=== PATIENT | female | born 1990 | race African-American/Black ===

== ENCOUNTER 2018-03-16 10:05 | Observation (INO) | payer MEDICAID ==
[~2018-03-16 10:05] MED LIST: PREN-96 PO
== END 2018-03-16 11:40 | disposition home or self-care (01) | DRG 566 ==
LOC: LDRP 10:05
PROVIDERS: ADMIT Obstetrics & Gynecology; ATTEND Obstetrics & Gynecology
DX: O48.0 Post-term pregnancy (principal); Z3A.40 40 weeks gestation of pregnancy
CPT/HCPCS: 59025; 76818; 81002; G0378

== ENCOUNTER 2018-03-18 19:05 | Observation (INO) | payer MEDICAID | END 2018-03-18 20:28 | disposition home or self-care (01) | DRG 566 | LOC: LDRP 19:05 | PROVIDERS: ADMIT Obstetrics & Gynecology; ATTEND Obstetrics & Gynecology | DX: O48.0 Post-term pregnancy (principal); Z3A.40 40 weeks gestation of pregnancy | CPT/HCPCS: 59025; 76818; 81002; G0378 ==

== ENCOUNTER 2018-03-20 14:55 | Observation (INO) | payer MEDICAID | END 2018-03-20 17:30 | disposition home or self-care (01) | DRG 566 | LOC: LDRP 14:55 | PROVIDERS: ADMIT Specialist; ATTEND Specialist | DX: O48.0 Post-term pregnancy (principal); Z3A.40 40 weeks gestation of pregnancy | CPT/HCPCS: 59025; 76818; 81002; G0378 ==

== ENCOUNTER 2018-03-22 15:07 | Observation (INO) | payer MEDICAID ==
[~2018-03-22] VITALS: Ht 167.6 cm; Wt 119.7 kg
== END 2018-03-22 16:55 | disposition home or self-care (01) | DRG 566 ==
LOC: LDRP 15:07
PROVIDERS: ADMIT Obstetrics & Gynecology; ATTEND Obstetrics & Gynecology
DX: O48.0 Post-term pregnancy (principal); O62.9 Abnormality of forces of labor, unspecified; Z3A.40 40 weeks gestation of pregnancy
CPT/HCPCS: 59025; 76818; 81002; G0378

== ENCOUNTER 2018-03-24 22:15 | Observation (INO) | payer MEDICAID | END 2018-03-24 23:45 | disposition home or self-care (01) | DRG 566 | LOC: LDRP 22:15 | PROVIDERS: ADMIT Specialist; ATTEND Specialist | DX: O48.0 Post-term pregnancy (principal); O62.9 Abnormality of forces of labor, unspecified; Z3A.41 41 weeks gestation of pregnancy | CPT/HCPCS: 59025; 76818; 81002; G0378 ==

== ENCOUNTER → 2018-06-18 | Outpatient (CLI) | payer OTHER | END | disposition home or self-care (01) | LOC: LAB 14:11 | PROVIDERS: ATTEND Preventive Medicine Preventive Medicine/Occupational Environmental Medicine | DX: B19.10 Unspecified viral hepatitis B without hepatic coma (principal) | CPT/HCPCS: 36415; 86706; 86735; 86762; 86765; 86787 ==

== ENCOUNTER 2019-10-22 11:05 | Observation (INO) | payer MEDICAID, OTHER | END 2019-10-22 13:45 | disposition home or self-care (01) | DRG 566 | LOC: LDRP 11:05 | PROVIDERS: ADMIT Specialist; ATTEND Specialist | DX: O48.0 Post-term pregnancy (principal); Z3A.40 40 weeks gestation of pregnancy | CPT/HCPCS: 59025; 76818; 81002; G0378 ==

== ENCOUNTER 2019-10-24 19:06 | Observation (INO) | payer MEDICAID | END 2019-10-24 22:10 | disposition home or self-care (01) | DRG 566 | LOC: LDRP 19:06 | PROVIDERS: ADMIT Obstetrics & Gynecology; ATTEND Obstetrics & Gynecology | DX: O48.0 Post-term pregnancy (principal); Z3A.40 40 weeks gestation of pregnancy | CPT/HCPCS: 59025; 76818; 81002; G0378 ==

== ENCOUNTER 2019-10-26 11:35 | Observation (INO) | payer MEDICAID | END 2019-10-26 13:34 | disposition home or self-care (01) | DRG 566 | LOC: LDRP 11:35 | PROVIDERS: ADMIT Specialist; ATTEND Specialist | DX: O48.0 Post-term pregnancy (principal); Z3A.40 40 weeks gestation of pregnancy | CPT/HCPCS: 59025; 76818; 81002; G0378 ==

== ENCOUNTER 2019-10-28 16:00 | Observation (INO) | payer MEDICAID | END 2019-10-28 17:55 | disposition home or self-care (01) | DRG 566 | LOC: LDRP 16:00 | PROVIDERS: ADMIT Specialist; ATTEND Specialist | DX: O48.0 Post-term pregnancy (principal); Z3A.40 40 weeks gestation of pregnancy | CPT/HCPCS: 59025; 76818; 81002; G0378 ==

== ENCOUNTER 2019-10-30 09:08 | Inpatient (IN) | payer MEDICAID ==
[~2019-10-30] VITALS: Ht 167.6 cm; Wt 120.7 kg
[2019-10-30] MEDS ORDERED: PENICILLIN G POT 5MIL/D5 50ML 50 ML IV ONE (11:45)
[2019-10-30] MEDS: LACTATED RINGER'S 1,000 ML IV SCH ×2 (12:01→18:18)
[2019-10-30 12:31] LABS: Basophils # (auto) 0.1 10 ^3/uL (0-0.2); Basophils % (auto) 1.5 % (0.0-2.0); Eosinophils # (auto) 0 10 ^3/uL (0-0.8); Eosinophils % (auto) 0.5 % (0.0-7.0); Hematocrit 41.9 % (36.0-46.0); Hemoglobin 13.5 g/dL (12.2-16.2); Lymphocytes # (auto) 1.1 10 ^3/uL (0.4-5.4); Lymphocytes % (auto) 14.6 % (10.0-50.0); Mean Corpuscular Hemoglobin 29.3 pg (28.0-32.0); Mean Corpuscular Hgb Conc. 32.3 g/dL (32.0-36.0); Mean Corpuscular Volume 90.6 fL (80.0-100.0); Monocytes # (auto) 0.6 10 ^3/uL (0-1.3); Monocytes % (auto) 7.7 % (0.0-12.0); Neutrophils # (auto) 5.5 10 ^3/uL (1.6-8.6); Neutrophils % (auto) 75.7 % (37.0-80.0); Nucleated Red Blood Cells % 0.1 %; Platelet Count (auto) 189 10^3/uL (140-450); Red Blood Cells 4.62 10^6/uL (4.0-5.20); Red Cell Distribution Width 16.3 % (11.8-14.3); White Blood Cell 7.3 10^3/uL (4.4-10.8)
[2019-10-30 12:41] LABS: Urine Bacteria FEW /hpf (None Seen); Urine Blood Negative /uL (Negative); Urine Mucus FEW (None Seen); Urine Specific Gravity 1.031 (1.001-1.035); Urine WBC 4 /hpf (0 - 5)
[2019-10-30 12:47] LABS: Calcium 9.4 mg/dL (8.5-10.1); Potassium 3.4 mmol/L (3.5-5.1)
[2019-10-30 12:49] LABS: INR 0.9 (0.9-1.15); Partial Thromboplastin Time 28.8 sec (23.64-32.05)
[2019-10-30 12:52] LABS: BUN/Creatinine Ratio 17.1; Bilirubin, Total 0.4 mg/dL (0.2-1.0); Total Protein 7.8 g/dL (6.4-8.2)
[2019-10-30] MEDS ORDERED: LACT. RINGERS/OXYTOCIN 20UNITS 1,000 ML IV SCH ×2 (15:12→17:58)
[2019-10-30] MEDS ORDERED: METHYLERGONOVINE MALEATE 0.2 MG/ML AMP IM PRN (15:15)
[2019-10-30] MEDS ORDERED: PHISODERM TOP SOLN 240ML BTL TOP PRN (15:15)
[2019-10-30] MEDS ORDERED: DERMOPLAST 60ML BOTTLE TOP PRN (15:15)
[2019-10-30] MEDS ORDERED: WITCH HAZEL-GLYCERIN PAD TOP PRN (15:15)
[2019-10-30] MEDS ORDERED: CARBOPROST TROMETHAMINE 250 MCG/1ML VIAL IM PRN (15:15)
[2019-10-30] MEDS ORDERED: LIDOCAINE 2%HCL (LOCAL ANESTH.) INJ 20ML MDV ID PRN (15:15)
[2019-10-30] MEDS: PENICILLIN G POTASSIUM 2,500,000 UNITS in D5W 5% 50 ML IV SCH ×2 (16:21→20:17)
[2019-10-30] MEDS ORDERED: TERBUTALINE SULFATE 1 MG/ML 1ML VIAL SC PRN (18:00)
[2019-10-30] MEDS ORDERED: LACTATED RINGER'S 1,000 ML IV ONE (18:42)
[2019-10-30] MEDS ORDERED: NALOXONE HCL 0.4 MG/ML VIAL IV ONE ×2 (18:45→20:30)
[2019-10-30] MEDS ORDERED: ROPIVACAINE HCL 100 ML EPI SCH ×2 (18:45→20:30)
[2019-10-30] MEDS ORDERED: ePHEDrine SULFATE 50 MG/ML AMP IV ONE ×2 (18:45→20:30)
[2019-10-30] MEDS ORDERED: fentaNYL CITRATE 100 MCG/2 ML VL IV ONE (18:45)
[2019-10-30] MEDS ORDERED: LIDOCAINE HCL 2 %PF INJ 10ML AMP IJ ONE (18:45)
--- NOTE | 2019-10-30 20:10 | NUR ---
Epidural pump started at this time. unable to scan and document under emar. Charge nurse aware.
[2019-10-30] MEDS ORDERED: LACTATED RINGER'S 500 ML IV ONE (20:16)
[2019-10-30] MEDS ORDERED: SODIUM CHLORIDE 0.9% 500 ML IV PRN (20:16)
[2019-10-30] MEDS ORDERED: ceFAZolin 1GM 2 GM in D5W 5% 100 ML IV ONE (21:45)
[2019-10-30] MEDS ORDERED: ACETAMINOPHEN IV 1000 MG/100ML (10MG/ML) IV PRN (21:45)
--- NOTE | 2019-10-31 00:07 | NUR ---
Ambulation: Epidural catheter removed with blue tip intact. Patient OOB with standby assistance by RN. Patient ambulated to bathroom with steady gait. Patient able to void without difficulty. [facility]icare teaching provided with returned demonstration by patient. Clean gown provided and bed linen changed. Patient ambulated back to bed with steady gait and no distress noted.
[2019-10-31] MEDS: IBUPROFEN 600 MG TAB PO PRN ×5 (00:26→20:57)
[2019-10-31 03:30] VITALS: BP 138/88
[2019-10-31] MEDS ORDERED: ceFAZolin 1GM/50ML 50 ML IV SCH (06:00)
[2019-10-31 07:10] VITALS: BP 126/69
[2019-10-31 11:20] VITALS: BP 98/52
[2019-10-31 15:20] VITALS: BP 121/68
[2019-10-31 18:40] VITALS: BP 118/73
[2019-10-31 23:15] VITALS: BP 123/85
[2019-11-01 02:30] VITALS: BP 114/57
[2019-11-01 06:47] VITALS: BP 132/84
[2019-11-01] MEDS: IBUPROFEN 600 MG TAB PO PRN (07:01)
--- NOTE | 2019-11-01 07:50 | NUR ---
Discharge: Discharge instructions given as ordered. Pt encouraged to follow up with [facility] as instructed. All questions and concerns addressed. Patient verbalized understanding. Medication reconciliation completed and copy given to patient. All required/requested vaccines given and copies of vaccinations given to patient. Patient encouraged to prepare to depart unit. Signed: 11/01/19 at 0751 by ROSALIND ROSE SN <Co-Signature Required> Co-Signed: 11/01/19 at 0751 by Elizabeth Gusman RN
[2019-11-01 08:06] LABS: RPR Non Reactive (Non Reactive)
--- NOTE | 2019-11-01 09:15 | NUR ---
Discharge: Patient taken to vehicle via ambulating with all personal belongings, accompanied by staff and family member. No distress noted at time of departure, no adverse changes in status since initial assessment.
[2019-11-01 09:28] VITALS: BP 130/60
== END 2019-11-01 09:15 | disposition home or self-care (01) | DRG 560 ==
LOC: LDRP 09:08 → OBSVTOIN 11:30 → LDRP 12:18
PROVIDERS: ADMIT Obstetrics & Gynecology; ATTEND Obstetrics & Gynecology
PROC: 10E0XZZ Delivery of Products of Conception, External Approach (ICD-10-PCS; principal; 2019-10-30)
PROC: 3E0R3BZ Introduction of Anesthetic Agent into Spinal Canal, Percutaneous Approach (ICD-10-PCS; 2019-10-30)
PROC: 00HU33Z Insertion of Infusion Device into Spinal Canal, Percutaneous Approach (ICD-10-PCS; 2019-10-30)
DX: O48.0 Post-term pregnancy (principal); Z37.0 Single live birth; Z3A.41 41 weeks gestation of pregnancy
CPT/HCPCS: 36415; 59025; 59200; 59409; 62282; 76818; 80053; 81001; 81002; 84112; 85025; 85610; 85730; 86592; 86850; 86900; 86901; 94760; 96360; 96361; G0378; J0131; J0690; J2540; J2590; J7060